=== PATIENT | male | born 1990 | race Asian ===

== ENCOUNTER → 2016-11-21 | Day surgery (SDC) | payer OTHER ==
[~2016-11-21] MED LIST: LIDOCAINE 1% INJ-PF (10 MG/ML) 30 ML SDV ONE
== END ==
LOC: RAD 13:39
PROVIDERS: ATTEND Physician Assistant
PROC: BP09ZZZ Plain Radiography of Left Shoulder (ICD-10-PCS; principal; 2016-11-21)
DX: M25.512 Pain in left shoulder (principal)
CPT/HCPCS: 73222; 73040; 77002; A9576; J3490